=== PATIENT | female | born 1990 | race Two or more races ===

== ENCOUNTER 2019-10-15 11:50 | Inpatient (IN) | payer OTHER ==
[~2019-10-15] VITALS: Ht 160 cm; Wt 63.5 kg
[2019-11-24] MEDS ORDERED: FOLIC ACID20 MG PO (08:04)
[2019-11-24] MEDS ORDERED: PRENATAL TABLE1 EAC1 PO (08:04)
== END 2019-11-27 11:59 | disposition home or self-care (01) | DRG 788 ==
LOC: OB/GYN 11-22 13:45 → LDR 11-24 06:43 → OB/GYN 11-24 06:43
PROVIDERS: ADMIT Obstetrics & Gynecology
PROC: 3E0P7VZ Introduction of Hormone into Female Reproductive, Via Natural or Artificial Opening (ICD-10-PCS; 2019-11-24)
PROC: 3E033VJ Introduction of Other Hormone into Peripheral Vein, Percutaneous Approach (ICD-10-PCS; 2019-11-24)
PROC: 4A1HXCZ Monitoring of Products of Conception, Cardiac Rate, External Approach (ICD-10-PCS; 2019-11-24)
PROC: 10D00Z1 Extraction of Products of Conception, Low, Open Approach (ICD-10-PCS; principal; 2019-11-24 17:00)
DX: O82 Encounter for cesarean delivery without indication (principal); O61.0 Failed medical induction of labor; Z3A.39 39 weeks gestation of pregnancy; Z37.0 Single live birth

== ENCOUNTER 2024-11-16 12:23 | Emergency (ER) | payer OTHER ==
[~2024-11-16] VITALS: Ht 160 cm; Wt 48.5 kg
[~2024-11-16 12:23] MED LIST: FOLIC ACID20 MG PO; PRENATAL TABLE1 EAC1 PO
[2024-11-16] MEDS ORDERED: PEPCID AC20 MG PO (14:02)
[2024-11-16] MEDS ORDERED: CEPHALEXIN750 MG PO (14:02)
[2024-11-16] MEDS ORDERED: TETANUS & DIPHTHERIA TOX,ADULT 0.5 ML VIAL IM ONE (14:15)
[2024-11-16] MEDS ORDERED: TETANUS DIPHTHERIA TOX. ADSOR 5 ML VIAL IM ONE (14:27)
== END 2024-11-16 14:35 | disposition home or self-care (01) ==
LOC: ER 12:25
DX: O26.892 Other specified pregnancy related conditions, second trimester (principal); Z3A.19 19 weeks gestation of pregnancy; S60.471A Other superficial bite of left index finger, initial encounter; W54.0XXA Bitten by dog, initial encounter; Y93.89 Activity, other specified; Y92.89 Other specified places as the place of occurrence of the external cause; Y99.9 Unspecified external cause status